=== PATIENT | male | born 1980 | race Caucasian/White ===

== ENCOUNTER 2018-04-05 17:07 | Inpatient (IN) | payer BC, OTHER ==
[~2018-04-05] VITALS: Ht 180.3 cm; Wt 59.0 kg
[2018-04-05 19:45] VITALS: BP 97/59
--- NOTE | 2018-04-05 19:45 | NUR ---
Intake Assessment Pt is a 38 y/o male seen at intake, A&Ox4 and presents with anxiety, disheveled hair and clothes. Pt is ambulatory with a steady gait. Vital signs: T 98.5, BP 97/59, HR 72, RR 16, SaO2 94%, PA 0/10. Pt claims no known allergies (NKA), reports no seizures. Pt reports being sober for 2.5 months until 3 months ago and has been using Oxycodone, Xanax, Adderall and Marijuana. Pt denies PMH of depression or anxiety, or any othe phychiatric DX. Pt also denies any PMH. Pt brought Melatonin 5mg tablets as sole home medication.
[2018-04-05 20:00] VITALS: BP 114/69
[2018-04-05] MEDS ORDERED: LORAZEPAM 2 MG/1 ML VIAL IM PRN (20:30)
[2018-04-05] MEDS ORDERED: LORAZEPAM 1 MG TABLET PO PRN (20:30)
[2018-04-05] MEDS ORDERED: MIRALAX 17 GM POWD.PACK PO PRN (20:30)
[2018-04-05] MEDS ORDERED: ONDANSETRON 4 MG/2 ML VIAL IM PRN (20:30)
[2018-04-05] MEDS ORDERED: ACETAMINOPHEN 325 MG TABLET PO PRN (20:30)
[2018-04-05] MEDS ORDERED: MAGNESIUM HYDROXIDE 30 ML LIQUID UDC PO PRN (20:30)
[2018-04-05] MEDS ORDERED: BUPRENORPHINE HCL 2 MG TAB.SUBL SL PRN (20:30)
[2018-04-05] MEDS ORDERED: NICOTINE 21 MG/24HR PATCH TD PRN (20:30)
[2018-04-05] MEDS ORDERED: MAG HYDROX/AL HYDROX/SIMETH 30 ML LIQUID UDC PO PRN (20:30)
[2018-04-05] MEDS ORDERED: LOPERAMIDE HCL 2 MG CAPSULE PO PRN ×2 (20:30)
--- NOTE | 2018-04-05 20:45 | NUR ---
Admission Note Pt arrived on the unit at 2019 on 04/05/18 for Opiate, Benzodiazapine, withdrawal. Skin and body check completed, skin intact and no contraband found. Pt is 5'11" and 130 lbs, reporting a 30 lb weight loss in last 2 months r/t drug use. Initial COWS is 3, CIWA 4. VS's T 98.3, BP 114/69, HR 67, RR 18, SaO2 99%, PA 0/10. Pt is a full code, regular diet with NKA's on universal and fall and seizure precautions. Pt denies any seizure hx, no falls in past year. Pt denies any PMH of anxiety, depression, does report some sleeping difficulties. Pt denies any SI/HI, hospitalizations in past 30 days or ever being in correction/senior care. 1 surgery noted on lymph node on neck, benign. Pt smokes approximately 20 cigarettes a day, expresses interest in smoking cessation. Flu vaccine out of season, willing to accept PNA vaccine if covered by insurance, and HIV testing. Pt brought Melatonin tablets, 5mg, as sole home med. Substance Use History: 1. Oxycodone IH 300mg/day for last 2 months at current rate, last used 04/05/18 at c. 1700. 2 . Xanax PO 1 bar 2-3 times per week for last 2 weeks at current rate, last used 04/05/18 at c. 1700. 3. Adderall PO used last November 2017, Pt unable to expand on usage other than very occasional. 4. Marijuana IH .5-1g/day used at current rate for last 3 weeks at current rate, last used 04/05/18 at c. 1700. Pt reports symptoms when not using as "Hell! Vomiting, nausea, diarrhea, irritability, lack of sleep, restless legs, anxious, scared". Motivation for seeking treatment today expressed by pt as "I'm broken. I need help. I don't want to detox by myself, I want to do it the right way". Pt reports achieving 2.5 months of sobriety, ending 3 months ago, longest period of sobriety was 2.5 years from 06/2013 to 03/2016. One treatment [facility]: [facility] for [facility] in 2012. Pt blames current relapse/usage on no meetings, no sponsor, breakup with girlfriend, and new job as Corporate Executive for [employer].Pt reports family hx of substance abuse in paternal grandfather, noted for alcoholism, and brother currently residing with, who is also an opiate addict currently in detox also. Pt's motivation for a sober life exhibited by "I want to get back to being sober because my life was better when I was sober". Pt is A&O x 4, speech is coherent, pt is ambulatory with steady gait, PERRLA. Respirations are even and non labored, lung sounds clear in all quadrants. Denies chest pain or SOB. Abdomen soft and non tender, bowel sounds active in all 4 quadrants. Last BM 04/04/18, usual pattern daily but pt reports now about every 3 days r/t opiate use/constipation. U/A and blood collected. Pt oriented to room and educated pt about smoking and unit rules, how to use call light, pt verbalized understanding. Safetly measure in place, side rails up x 2 with pads, bed in lowest position. Call light within reach. Admitting orders have been placed.
[2018-04-05 21:05] LABS: BASOPHILS # (AUTO) 0.1 K/uL (0.0-8.0); BASOPHILS % (AUTO) 0.4 % (0.0-2.0); EOSINOPHILS # (AUTO) 0.3 K/uL (0.0-0.7); HEMATOCRIT 39.9 % (36.7-47.1); HEMOGLOBIN 13.5 g/dL (12.5-16.3); LYMPHOCYTES # (AUTO) 2.9 K/uL (20.0-40.0); LYMPHOCYTES % (AUTO) 23.1 % (20.5-51.5); MEAN CORPUSCULAR HEMOGLOBIN 29.8 uug (23.8-33.4); MEAN CORPUSCULAR HGB CONC 34 g/dL (32.5-36.3); MEAN CORPUSCULAR VOLUME 87.9 fL (73.0-96.2); MONOCYTES % (AUTO) 8.2 % (0.0-11.0); NEUTROPHILS # (AUTO) 8.3 K/uL (1.8-8.9); NEUTROPHILS % (AUTO) 66.3 % (38.5-71.5); PLATELET COUNT (AUTO) 202 K/uL (152-348); RED BLOOD CELL COUNT(AUTO) 4.54 MIL/uL (4.06-5.63); WHITE BLOOD COUNT (AUTO) 12.6 K/uL (3.6-10.2)
[2018-04-05 21:10] LABS: *AMPHETAMINE, URINE NEGATIVE (NEGATIVE); *BARBITURATE, URINE NEGATIVE (NEGATIVE); *CANNABINOID, URINE POSITIVE (NEGATIVE); *COCCAINE, URINE NEGATIVE (NEGATIVE); *OPIATE, URINE POSITIVE (NEGATIVE); *PHENCYCLIDINE SCREEN,URINE NEGATIVE (NEGATIVE)
[2018-04-05 21:25] LABS: ALANINE AMINOTRANSFERASE 30 U/L (16-63); ALKALINE PHOSPHATASE 48 U/L (50-136); ASPARTATE AMINOTRANSFERASE 13 U/L (15-37); BILIRUBIN,TOTAL 0.6 mg/dL (0.2-1.0); CARBON DIOXIDE 31 mmol/L (21-32); CHLORIDE 103 mmol/L (98-107); CREATININE 1.2 mg/dL (0.6-1.3); GLUCOSE 87 mg/dL (74-106); MAGNESIUM 2.2 mg/dL (1.8-2.4); POTASSIUM 3.9 mmol/L (3.5-5.1); UREA NITROGEN, BLOOD 15 mg/dL (7-18)
[2018-04-05 21:32] LABS: ETHANOL < 3 MG/DL (0-0); THYROID STIMULATING HORMONE 0.327 mIU/mL (0.358-3.740)
[2018-04-05] MEDS ORDERED: MELA5TAB PO (23:36)
--- NOTE | 2018-04-06 | NUR ---
VS's COWS/CIWA Deferred Midnight VS's COWS/CIWA deferred r/t pt sleeping/refused. RR 14, even and nonlabored. Will continue to monitor pt, promptly attending to all needs.
[2018-04-06 04:00] VITALS: BP 100/65
--- NOTE | 2018-04-06 06:35 | NUR ---
End of Shift Pt is a 38 y/o male admitted 04/05/18 for medically managed withdrawal/detox from Opiates (Oxycodone), and Xanax. Pt made a full code, with NKA and regular diet. Pt presents after a 3 month relapse, with a 30lb weight loss in last 60 days, at 130lbs, 5'11". Starting 5 day Subutex taper 04/06, PRN Ativan available. Last COWS was 4 at 0400. There were no PRN's for shift .Pt continues to exhibit signs of anxiety, worry, depression over pt's impending sense of doom. Pt slept for 7 hours, with 500 intake, 1 voids and 0 BM's. Will continue to monitor pt for shift until morning endorsement, promptly attending to all pt needs.
[2018-04-06 08:00] VITALS: BP 100/65
--- NOTE | 2018-04-06 08:05 | NUR ---
START OF SHIFT: RECEIVED PT A/O X 4. HIS PUPILS ARE MODERATELY DILATED. HE PRESENTS WITH GUARDED AFFECT AND ANXIOUS MOOD.HE STATES HE DOES NOT WANT THE PPD AND IS NOT READY FOR THE SUBUTEX YET. COWS 10. HE STATES HE DOES NOT FEEL SICK ENOUGH YET BUT WILL LET ME KNOW WHEN HE'S READY TO START SUBUTEX TAPER. EDUCATED PT ABOUT SUBUTEX . PT EXPRESSED VERBAL UNDERSTANDING OF EDUCATION. WILL CONTINUE TO MONITOR AND MANAGE S/S OF W/D.
[2018-04-06] MEDS: BUPRENORPHINE HCL 2 MG TAB.SUBL SL SCH ×3 (09:00→20:34)
[2018-04-06] MEDS ORDERED: TUBERCULIN,PURIF.PROT.DERIV. 5 TU/0.1 ML TEST ID ONE (09:00)
[2018-04-06 12:00] VITALS: BP 107/69
--- NOTE | 2018-04-06 12:30 | NUR ---
COWS DEFERRED. PT LAYING IN BED WITH EYES CLOSED. RESPIRATIONS EVEN AND UNLABORED. BED LOCKED AND LOW. CALL PURCELL IN REACH.
--- NOTE | 2018-04-06 13:30 | NUR ---
PT REPORTS BODY ACHES,CHILLS,STOMACH CRAMPS,AND ANXIETY. COWS 15. SUBUTEX 4MG SL PRN GIVEN TO MANAGE S/S OF W/D. WILL MONITOR EFFECTIVENESS.
--- NOTE | 2018-04-06 14:00 | NUR ---
PRN SUBUTEX MILDLY EFFECTIVE. COWS NOW 8. WILL CONTINUE TO MONITOR AND MANAGE S/S OF W/D.
[2018-04-06 16:00] VITALS: BP 110/79
--- NOTE | 2018-04-06 18:58 | NUR ---
END OF SHIFT: PT STARTED SUBUTEX TAPER TODAY. HE CONTINUES TO PRESENT WITH GUARDED AFFECT AND ANXIOUS MOOD. LAST COWS 11. HE REPORTS BODY ACHES,SEATS,CHILLS AND ANXIETY AND STATES THE DETOX MEDS ARE MILDLY EFFECTIVE. HE HAS ISOLATED IN HIS ROOM MOST OF SHIFT WATCHING TV AND RESTING ON AND OFF. ENCOURAGED HIM TO INCREASE HIS FLUID INTAKE. OFFERED SUPPORT. WILL PASS SHIFT REPORT TO ONCOMING NIGHT NURSE.
--- NOTE | 2018-04-06 19:30 | NUR ---
START OF SHIFT Pt is a 38 y/o male admitted on 04/05/18 for opiate and benzo withdrawal. Pt is on a 5 day Subutex taper that started today with PRN Ativan available, tolerating well. Last COWS 11 and PRN Subutex 4 mg administered during day shift. Upon assessment pt presents with severe anxiety, restlessness, agitation, sweats, chills, nausea, body aches, headache, stomach cramps, unkempt room, tremors, difficulty falling and staying asleep, flat affect, depressed affect, disheveled appearance. Medications due. Safety measures in place. Call light within reach. Will continue to monitor.
[2018-04-06] MEDS: DICYCLOMINE HCL 20 MG TABLET PO PRN (19:37)
[2018-04-06] MEDS: METHOCARBAMOL 750 MG TABLET PO PRN (19:38)
[2018-04-06] MEDS: LORAZEPAM 1 MG TABLET PO PRN ×2 (19:38→22:05)
[2018-04-06] MEDS: ONDANSETRON ODT 4 MG TAB.RAPDIS SL PRN (19:38)
[2018-04-06] MEDS: IBUPROFEN 600 MG TABLET PO PRN (19:38)
--- NOTE | 2018-04-06 19:38 | NUR ---
PRN ATIVAN 2 MG, BENTYL, ZOFRAN ODT, MOTRIN, ROBAXIN ADMINISTRATION CIWA 15. Pt presents with anxiety, restlessness, inability to sit still, racing thoughts, stomach cramps, sweats, chills, body aches, nausea without vomiting, tremors and headache. Safety measures in place. Call light within reach. Will continue to monitor.
[2018-04-06 20:00] VITALS: BP 134/86
--- NOTE | 2018-04-06 20:08 | NUR ---
ROSSI MCLEAN ODT REASSESSMENT Pt reports nausea has ceased, no episodes of vomiting. Safety measures in place. Call light within reach. Will continue to monitor.
--- NOTE | 2018-04-06 20:38 | NUR ---
PRN ATIVAN, BENTYL, MOTRIN AND ROBAXIN REASSESSMENT CIWA 13, pt has improvement in nausea and stomach cramps. Pt reports his headache improved "slightly." Pt states his body aches are still rated as 8/10 and has persistent anxiety, restlessness and tremors. Safety measures in place. Call light within reach. Will continue to monitor.
[2018-04-06] MEDS: HYDROXYZINE PAMOATE 25 MG CAPSULE PO PRN (20:50)
[2018-04-06] MEDS: CLONIDINE HCL 0.1 MG TABLET PO PRN (20:50)
--- NOTE | 2018-04-06 20:50 | NUR ---
PRN CLONIDINE AND VISTARIL ADMINISTRATION Pt presents with severe anxiety, agitation, chills and sweats. Safety measures in place. Call light within reach. Will continue to monitor.
--- NOTE | 2018-04-06 21:50 | NUR ---
PRN CLONIDINE AND VISTARIL REASSESSMENT Pt reports improvement in chills and sweats, but symptoms are still present. Pt reports his anxiety and restlessness are "the same still." Pt presents with inability to sit still. Safety measures in place. Call light within reach. Will continue to monitor.
--- NOTE | 2018-04-06 22:05 | NUR ---
PRN ATIVAN 2 MG ADMINISTRATION CIWA 12. Pt presents with anxiety, restlessness, inability to sit still, tremors, sweats. Safety measures in place. Call light within reach. Will continue to monitor.
--- NOTE | 2018-04-06 23:05 | NUR ---
PRN ATIVAN 2 MG REASSESSMENT CIWA 10. Pt has mild improvement in anxiety, restlessness, tremors. Safety measures in place. Call light within reach. Will continue to monitor.
[2018-04-07] VITALS: BP 103/62
--- NOTE | 2018-04-07 | NUR ---
COWS/CIWA DEFERRED Pt laying in bed with eyes closed, COWS/CIWA deferred, to be assessed when pt is awake per orders. Respirations even and unlabored. Safety measures in place. Call light within reach. Will continue to monitor.
--- NOTE | 2018-04-07 02:10 | NUR ---
PRN ATIVAN 2 MG, BENADRYL AND MOTRIN ADMINISTRATION CIWA 12. Pt presents with anxiety, restlessness, sweats, chills, headache. Pt requests Benadryl for sleep aid. Safety measures in place. Call light within reach. Will continue to monitor.
[2018-04-07] MEDS: LORAZEPAM 1 MG TABLET PO PRN (02:21)
[2018-04-07] MEDS: IBUPROFEN 600 MG TABLET PO PRN ×3 (02:21→15:45)
[2018-04-07] MEDS: diphenhydrAMINE 50 MG CAPSULE PO PRN ×2 (02:21→20:36)
--- NOTE | 2018-04-07 03:21 | NUR ---
PRN ATIVAN, BENADRYL AND MOTRIN REASSESSMENT Pt laying in bed with eyes closed, medications noted effective. Respirations even and unlabored. Safety measures in place. Call light within reach. Will continue to monitor.
[2018-04-07 04:00] VITALS: BP 111/69
--- NOTE | 2018-04-07 07:11 | NUR ---
END OF SHIFT Pt is a 38 y/o male admitted on 04/05/18 for opiate and benzo withdrawal. Pt is on a 5 day Subutex taper that started on 04/06/18 with PRN Ativan available, tolerating well. Pt presented with severe anxiety, restlessness, agitation, sweats, chills, nausea, body aches, headache, stomach cramps, unkempt room, tremors, difficulty falling and staying asleep, flat affect, depressed affect, disheveled appearance. Scheduled medications and PRN Ativan 2 mg x 2, Bentyl, Zofran, Motrin x 2, Robaxin, Clonidine, Vistaril, Ativan 1 mg, and Benadryl administered, effective in S/S of withdrawal AEB COWS 17 and CIWA 15 lowered to COWS 8 and CIWA 12 during shift. Pt slept 5 hours. Intake 3000 ml, void x 2, stool x 0. Safety measures in place. Call light within reach. Pts needs have been met. Endorsed to day shift nurse.
--- NOTE | 2018-04-07 08:02 | NUR ---
START OF SHIFT PT IS A 38 Y/O M ADMITTED ON 04/05/18 FOR BENZO AND OPIATE WITHDRAWAL. PT IS ON A 5 DAY SUBUTEX TAPER THAT STARTED ON 04/06/18 WITH PRN ATIVAN. UPON ASSESSMENT, PT HAS A DISHEVELED APPEARANCE, PT HAS A FLAT AFFECT, DEPRESSED MOOD. PT PRESENTS EXTREME ANXIETY, AGITATION, SLEEPLESSNESS, RESTLESSNESS, DIAPHORESIS, CHILLS, INTERMITTENT COLD/HOT FLASHES, NAUSEA, STOMACH CRAMPS, GENERALIZED BODY ACHES, DIFFICULTY THINKING AND CONCENTRATING, AND TREMORS ARE NOTED. LAST COWS 8 AND CIWA 12, SLEPT 5 HRS PER GRAVURE PRESS SET UP OPERATOR NURSE. EDUCATED PT WITH TODAY'S PLAN OF CARE AND MED REGIMEN. SIDE RAILS UPX2, BED IN LOW POSITION. CALL LIGHT IS WITHIN REACH. WILL MONITOR AND PROVIDE SUPPORT.
[2018-04-07 08:03] VITALS: BP 98/64
[2018-04-07] MEDS ORDERED: BUPRENORPHINE HCL 2 MG TAB.SUBL SL SCH (09:00)
[2018-04-07] MEDS: METHOCARBAMOL 750 MG TABLET PO PRN ×2 (09:43→20:36)
[2018-04-07] MEDS: DICYCLOMINE HCL 20 MG TABLET PO PRN ×2 (09:43→15:45)
--- NOTE | 2018-04-07 09:43 | NUR ---
PRN ROBAXIN, BENTYL, CLONIDINE, AND IBUPROFEN GIVEN FOR GENERALIZED BODY ACHES, HEADACHE PAIN 7/10, CHILLS, DIAPHORESIS, HOT/COLD FLASHES, AND STOMACH CRAMPS. SAFETY MEASURES IN PLACE. WILL MONITOR AND REASSESS.
[2018-04-07] MEDS: CLONIDINE HCL 0.1 MG TABLET PO PRN ×2 (09:44→15:45)
--- NOTE | 2018-04-07 10:43 | NUR ---
REASSESSMENT PT IS LAYING IN BED WITH EYES CLOSED, SLEEPING. RESPIRATIONS EVEN AND UNLABORED; RR 16. SAFETY MEASURES IN PLACE. WILL CONTINUE TO MONITOR.
[2018-04-07 12:35] VITALS: BP 102/61
--- NOTE | 2018-04-07 13:15 | NUR ---
BEHAVIORAL NOTE PT WAS BEING ARGUMENTATIVE AND TALKING RUDELY TO STAFF SINCE BEGINNING OF SHIFT. PT STATED HE DISLIKES THE FOOD; DIETARY CAME TO ENSURE PT GOT WHAT HE WANTED HOWEVER WHEN LUNCH TRAY CAME, PT STATED, "THIS IS SO DISGUSTING, I AM NOT EVEN GOING TO OPEN IT." ALSO PT WAS NOT HAPPY WITH RULES. WHEN EXPLAINING RULES, HE WAS HIGHLY ARGUMENTATIVE AND RUDE, DID NOT CARE TO LISTEN TO THE RATIONALE, HE WOULD RUDELY CUT OFF STAFF WHEN TALKING. PT WANTED TO RUN LAPS ON THE STREETS OUTSIDE THE HOSPITAL. EXPLAINED TO PT DUE TO SAFETY AND BEING ON MEDICATION IT WOULD NOT BE SAFE. PT KEPT ARGUING AND TALKING RUDELY TO STAFF.
[2018-04-07] MEDS: HYDROXYZINE PAMOATE 25 MG CAPSULE PO PRN (14:20)
[2018-04-07] MEDS: BUPRENORPHINE HCL 2 MG TAB.SUBL SL SCH ×2 (14:26→20:36)
--- NOTE | 2018-04-07 15:45 | NUR ---
PRN VISTARIL 25 MG PO PRN, IBUPROFEN 600 MG PO PRN, BENTYL 20 MG PO PRN, AND CLONIDINE 0.1 MG PO PRN GIVEN FOR EXTREME ANXIETY, PT HAS FACIAL FLUSHING, TREMORS, DIAPHORESIS, CHILLS, GENERALIZED BODY ACHES 10/10 PAIN. WILL MONITOR AND REASSESS.
[2018-04-07 16:00] VITALS: BP 103/73
--- NOTE | 2018-04-07 16:45 | NUR ---
REASSESSMENT PT IS IN ROOM WITH LIGHTS OFF, TV ON AND APPEARS TO BE SLEEPING AT THIS TIME. RESPIRATIONS EVEN AND UNLABORED. SAFETY MEASURES IN PLACE.
--- NOTE | 2018-04-07 19:25 | NUR ---
END OF SHIFT LAST COWS 13 AND CIWA 16 @1600. PT HAS BEEN ISOLATIVE IN ROOM MOST OF THE DAY. PT HAS NOT ATTENDED GROUPS OR ACTIVITIES. PT CONTINUES ON A 5 DAY SUBUTEX TAPER. PT CONTINUES TO C/O ANXIETY AND PRESENTS AGITATION, IRRITATION, HIGHLY LABILE. PT HAS BEEN APATHETIC, HIGHLY IRRITABLE AND BEEN SPEAKING TO STAFF IN AN BLUNTED AND ANGRY MANNER. ENCOURAGED PT TO ATTEND GROUPS TO PROMOTE COPING SKILLS. ENCOURAGED PT TO INCREASE CONSUMPTION OF FOOD. SAFETY MEASURES IN PLACE. WILL GIVE ENDORSEMENT TO EXTRAS CASTING DIRECTOR.
[2018-04-07 20:00] VITALS: BP 116/68
--- NOTE | 2018-04-07 20:00 | NUR ---
Start of Shift Nurse Received a 38 y/o male px, admitted for medically supervised withdrawals from oxycodone, Xanax and Adderall. Px was placed on 5 day Subutex taper started on 04/06/2018. Px is tolerating it. Last reported COWS 13 and CIWA 16 by AM shift nurse. During the rounds at 1999, px appears disheveled, unshaven, and anxious. Px stated "I have back pain of 14 out of 10 and my anxiety is also 14 out of 10! I have hot/cold flushes." Bilateral hand tremors noted. Bed on lowest position, side rails up 2x and call light within reach. We'll continue to monitor.
--- NOTE | 2018-04-07 20:36 | NUR ---
PRN medications At 2035, px received Benadryl 50 mg, 1 cap PO for insomnia, Robaxin 750 mg, 1 tab PO and Tylenol 325 mg, 2 tabs PO for back pain. To reassess after an hour. We'll continue to monitor.
--- NOTE | 2018-04-07 21:36 | NUR ---
Reassessment of Pain Px stated "I still have pain, but it's better, it's 05/19." We'll continue to monitor.
[2018-04-07] MEDS ORDERED: LORAZEPAM 1 MG TABLET PO PRN ×2 (22:00)
[2018-04-08] VITALS: BP 112/68
--- NOTE | 2018-04-08 | NUR ---
COWS and CIWA deferred COWS and CIWA deferred due to the px is asleep, to assess if the px is awake per doctor's order. We'll continue to monitor.
[2018-04-08] MEDS: HYDROXYZINE PAMOATE 25 MG CAPSULE PO PRN (02:09)
[2018-04-08] MEDS: ONDANSETRON ODT 4 MG TAB.RAPDIS SL PRN (02:09)
[2018-04-08] MEDS: IBUPROFEN 600 MG TABLET PO PRN ×3 (02:09→17:44)
[2018-04-08] MEDS: DICYCLOMINE HCL 20 MG TABLET PO PRN ×3 (02:09→17:44)
--- NOTE | 2018-04-08 02:09 | NUR ---
PRN medications Px received Zofran 4 mg/tab, 1 tab SL for nausea, Ativan 1 mg/tab, 1 tab PO for anxiety, Bentyl 20 mg/tab, 1 tab PO for stomach cramps, Motrin 600 mg/tab, 1 tab PO for back pains of 7/10, and Vistaril 25 mg/cap, 1 cap PO for anxiety. We'll continue to monitor.
--- NOTE | 2018-04-08 02:40 | NUR ---
Reassessment of Nausea Px stated "My nausea improved."
[2018-04-08 03:10] LABS: HEPATITIS B SURFACE AG Negative (Negative)
--- NOTE | 2018-04-08 03:10 | NUR ---
Reassessments Px stated "My stomach cramps improved, my back pain is still there but it's better, I am still anxious but I feel better now, thank you." We'll continue to monitor.
[2018-04-08 04:00] VITALS: BP_SYST 118; BP_SYST 121; BP_DIAS 72; BP_DIAS 76
--- NOTE | 2018-04-08 07:10 | NUR ---
End of Shift Nurse During the shift at 2035, px received Benadryl 50 mg PO for insomnia and Robaxin 750 mg PO and Tylenol 650 mg PO for back pain. They were effective. At 208, px received Zofran 4 mg SL for nausea, it was effective. Ativan 1 mg given PO as PRN and Vistaril 25 mg PO for anxiety. Bentyl 20 mg was given PO for stomach cramps. It was effective. Motrin 600 mg was also given PO as PRN for back pain of 7/10. It was effective. Px's oral intake is 750 ml, voided 2x, with No BM. Px slept for total of 8 hours. Last COWS 10 and CIWA 10. At 0630, px is asleep on bed in right side lying position. Bed on lowest position, side rails up 2x and call light within reach. We'll continue to monitor. Px endorsed to AM shift nurse.
--- NOTE | 2018-04-08 07:45 | NUR ---
START OF SHIFT PT IS A 38 Y/O M ADMITTED ON 04/05/18 FOR BENZO AND OPIATE WITHDRAWAL. PT IS ON A 5 DAY SUBUTEX TAPER THAT STARTED ON 04/06/18 WITH PRN ATIVAN. PT HAS A DISHEVELED APPEARANCE, PT HAS A FLAT AFFECT, DEPRESSED MOOD. PT PRESENTS EXTREME ANXIETY, FEELINGS OF PANIC, AGITATION, RESTLESSNESS, DIAPHORESIS, CHILLS, INTERMITTENT COLD/HOT FLASHES, NAUSEA, STOMACH CRAMPS, GENERALIZED BODY ACHES, DIFFICULTY THINKING AND CONCENTRATING, BACK PAIN, INTERMITTENT SLEEP AND TREMORS ARE NOTED. LAST COWS 10 AND CIWA 10, SLEPT 8 HRS PER CHIEF OF PEDIATRIC UROLOGY NURSE. EDUCATED PT WITH TODAY'S PLAN OF CARE AND MED REGIMEN. ENCOURAGED PT TO ATTEND GROUPS TO LEARN HOW TO MAINTAIN SOBRIETY. SIDE RAILS UPX2, BED IN LOW POSITION. CALL LIGHT IS WITHIN REACH. WILL MONITOR AND PROVIDE SUPPORT.
[2018-04-08 08:00] VITALS: BP 96/60
[2018-04-08] MEDS: CLONIDINE HCL 0.1 MG TABLET PO PRN ×2 (09:44→17:44)
[2018-04-08] MEDS: LORAZEPAM 1 MG TABLET PO SCH ×4 (09:44→20:46)
[2018-04-08] MEDS: BUPRENORPHINE HCL 2 MG TAB.SUBL SL SCH ×3 (09:44→20:46)
--- NOTE | 2018-04-08 09:45 | NUR ---
PRN CLONIDINE 0.1 MG PO PRN, BENTYL 20 MG PO PRN, IBUPROFEN 600 MG PO PRN GIVEN FOR GENERALIZED BODY ACHES 10 PAIN, STOMACH CRAMPS, CHILLS, HOT FLASHES, DIAOPHORESIS. WILL MONITOR AND REASSESS.
--- NOTE | 2018-04-08 10:45 | NUR ---
REASSESSMENT PT IS LAYING IN BED, WITH EYES CLOSED, SLEEPING. RESPIRATIONS EVEN AND UNLABORED. SAFETY MEASURES IN PLACE. WILL CONTINUE TO MONITOR.
[2018-04-08 12:00] VITALS: BP 96/63
[2018-04-08 16:00] VITALS: BP 105/74
--- NOTE | 2018-04-08 16:45 | NUR ---
REASSESSMENT PT REPORTS MEDS WERE EFFECTIVE; PAIN IS 5/10, APPEARS CALM. SAFETY MEASURES IN PLACE. WILL CONTINUE TO MONITOR. Addendum: 04/08/18 at 1914 by CHRISTINA PARRA RN CORRECT TIME [id number]
[2018-04-08] MEDS: METHOCARBAMOL 750 MG TABLET PO PRN (17:44)
[2018-04-08] MEDS: HYDROXYZINE PAMOATE 25 MG CAPSULE PO SCH ×2 (17:44→23:20)
--- NOTE | 2018-04-08 17:45 | NUR ---
PRN PT HAS BEEN GIVEN CLONIDINE, BENTYL, IBUPROFEN, ROBAXIN PO PRNS; PT C/O GENERALIZED BODY ACHES 8/10, STOMACH CRAMPS, CHILLS, DIAPHORESIS, COLD/HOT FLASHES. WILL MONITOR AND REASSESS.
--- NOTE | 2018-04-08 18:37 | NUR ---
END OF SHIFT LAST COWS 12 AND CIWA 12 @1600. PT HAS BEEN GIVEN CLONIDINE, BENTYL, IBUPROFEN PO PRNS DURING SHIFT. PT HAS BEEN ISOLATIVE IN ROOM MOST OF THE DAY; REFUSED TO ATTEND GROUPS. PT HAS BEEN GIVEN CLONIDINE, BENTYL, IBUPROFEN PRNS DURING SHIFT AND WAS EFFECTIVE. ENCOURAGED PT TO ATTEND GROUPS TO INCREASE COPING SKILLS. ENCOURAGED PT TO INCREASE CONSUMPTION OF FOOD. SAFETY MEASURES IN PLACE. WILL GIVE ENDORSEMENT TO NATURAL RESOURCES PROFESSOR. Addendum: 04/08/18 at 1910 by CHRISTINA PARRA RN PT HAS BEEN GIVEN CLONIDINEX2, BENTYLX2, IBUPROFENX2, ROBAXIN PO PRNS DURING SHIFT.
--- NOTE | 2018-04-08 19:45 | NUR ---
Start of Shift Nurse Received a 38 y/o male px, admitted for medically supervised withdrawals from oxycodone, Xanax and Adderall. Px was placed on 5 day Subutex taper started on 04/06/2018 and 3 day Ativan taper, started 04/08/2018. Px is tolerating them. Last reported COWS 12 and CIWA 12 by AM shift nurse. During the rounds at 1945, px appears disheveled, unshaven, and anxious. Px stated "I have back pain of 10 out of 10 and my anxiety is also 10 out of 10! Why don't you have medication that can address my pain problem? Every time you ask me guys, I am always saying 10 or more than 10! I also have hot/cold flushes." Bilateral hand tremors noted. Bed on lowest position, side rails up 2x and call light within reach. We'll continue to monitor.
[2018-04-08 20:00] VITALS: BP 133/87
[2018-04-08] MEDS ORDERED: TRAZODONE 50 MG TABLET PO SCH (21:00)
[2018-04-08] MEDS: KETOROLAC TROMETHAMINE 30 MG INJ IM PRN (23:20)
--- NOTE | 2018-04-08 23:20 | NUR ---
PRN Toradol Px received Toradol 30 mg IM as PRN med injected on left deltoids for body pains of 10/. We'll continue to monitor.
--- NOTE | 2018-04-08 23:50 | NUR ---
Reassessment of body aches Px stated that his pains improved from 10/10 to 5/10. We'll continue to monitor.
[2018-04-09] VITALS: BP 128/81
[2018-04-09] MEDS: diphenhydrAMINE 50 MG CAPSULE PO PRN (02:44)
--- NOTE | 2018-04-09 02:44 | NUR ---
PRN Benadryl Px received Benadryl 50 mg/cap, 1 cap PO as PRN med for insomnia. We'll continue to monitor.
[2018-04-09 04:00] VITALS: BP 125/78
[2018-04-09] MEDS: HYDROXYZINE PAMOATE 25 MG CAPSULE PO SCH ×4 (05:30→22:42)
--- NOTE | 2018-04-09 05:30 | NUR ---
Px refused Vistaril Px refused Vistaril due to the px is too sleepy to take medication at this moment.
--- NOTE | 2018-04-09 07:10 | NUR ---
End of Shift Nurse During the shift at 2320, px received Toradol 30 mg Im for body pains of 10/10. They were effective. At 0244, px received Benadryl 50 mg PO for insomnia. Px's oral intake is 750 ml, voided 1x, with No BM. Px slept for total of 6 hours. Last COWS 8 and CIWA 9. At 0630, px is asleep on bed in right side lying position. Bed on lowest position, side rails up 2x and call light within reach. We'll continue to monitor. Px endorsed to AM shift nurse.
--- NOTE | 2018-04-09 07:30 | NUR ---
START OF SHIFT Pt 38 y/o male admitted for opiate withdrawal. Pt received awake walking around the hallway. Pt alert and oriented to name, place, and time. Perrla. Skin warm and moist to touch. Respirations even and unlabored. Bilateral hand tremors noted. Pt needed limit setting and redirection. Pt was asked to not walk into nursing station, but pt ignored staff and went through nursing station. Pt appears disheveled. Clothes and food wrappings scattered throughout the room. Encouraged to maintain hygiene. It was reported that pt slept for 6 hours last night. Pt is on a 5 day subutex taper and is on day 3. Pt is also on a 3 day ativan taper and is on day 2. Bed on lowest position with side rails x2 up for safety. Call light within reach. Addendum: 04/10/18 at 0746 by MARIANELA DE LA TORRE RN correction Pt is on a 5 day subutex and is on day 4.
[2018-04-09 08:03] VITALS: BP 112/75
--- NOTE | 2018-04-09 08:03 | NUR ---
NSG ENTRY Pt states has 12.5 pain generalized when asked to rate his pain level from 0-10 with 10 being the highest. Pt observed walking around the unit and smiling.
[2018-04-09] MEDS: LORAZEPAM 1 MG TABLET PO SCH ×3 (08:25→21:18)
[2018-04-09] MEDS: BUPRENORPHINE HCL 2 MG TAB.SUBL SL SCH ×2 (08:25→21:18)
[2018-04-09] MEDS: KETOROLAC TROMETHAMINE 30 MG INJ IM PRN (08:26)
--- NOTE | 2018-04-09 08:34 | NUR ---
PRN Pt states has pain and rates it "12.5" generalized. Toradol IM prn per MD order given and tolerated well.
--- NOTE | 2018-04-09 09:34 | NUR ---
PRN CEE Pt observed laying on bed watching television.
[2018-04-09 12:00] VITALS: BP 93/60
[2018-04-09] MEDS: METHOCARBAMOL 750 MG TABLET PO PRN (14:28)
--- NOTE | 2018-04-09 14:28 | NUR ---
PRN Pt states has generalized body aches 6/10. Robaxin po prn per MD order given and tolerated well.
--- NOTE | 2018-04-09 15:20 | NUR ---
ROSSI MIKE Pt observed sitting on couch watching television.
[2018-04-09 16:00] VITALS: BP 129/85
--- NOTE | 2018-04-09 17:15 | NUR ---
PRN Pt states has nicotine craving . Nicotine patch prn per MD order applied and tolerated well.
--- NOTE | 2018-04-09 19:07 | NUR ---
END OF SHIFT Pt 38 y/o male admitted for opiate withdrawal. Pt alert and oriented to name, place, and time. Perrla. Skin warm and moist to touch. Respirations even and unlabored. Bilateral hand tremors noted. Pt appears disheved. Clothes scattered throughout the room. Encouraged to maintain hygiene. Pt observed mostly isolative to room throughout the day. Pt attended group activity in the afternoon. Pt was seen by MD today. Pt medication compliant and tolerated well. No ASE noted. Pt is on a 5 day subutex taper and is on day 4. Pt is also on a 3 day ativan taper and is on day 2. cows=9@0800, 9@1200,and 9@1600. ciwa=9@0800, 9@1200, and 9@1600. Bed on lowest position with sdie rails x2 up for safety. Call light within reach.
--- NOTE | 2018-04-09 19:14 | NUR ---
Start of shift note Received report from day shift nurse. Pt is a 38 yo male, A+Ox4, presenting to [facility] for Benzo/Opiate/Amphetamine withdrawal. Pt noted with agitation, anxiety, and restlessness. Pt has HX of neck SX which will be monitored, during shift. Pt is on 5 day Subutex and 3 day Ativan tapers, tolerated well. Respirations even and unlabored. Will continue to monitor.
[2018-04-09 20:20] VITALS: BP 119/71
[2018-04-09] MEDS: TRAZODONE 50 MG TABLET PO SCH (22:42)
[2018-04-10 00:20] VITALS: BP 124/78
[2018-04-10 04:25] VITALS: BP 122/81
[2018-04-10] MEDS: HYDROXYZINE PAMOATE 25 MG CAPSULE PO SCH ×4 (05:30→22:35)
--- NOTE | 2018-04-10 06:59 | NUR ---
End of shift note Pt was continuously noted with agitation, anxiety, and restlessness. Pt remained in room for majority of shift except to get food from kitchen and to go smoke on smoking patio. Pt is on 5 day Subutex and 36day Ativan tapers, tolerated well. Pt was not given any PRN medications during shift. Pt slept for a total of 8 HRS. Last COWS: 8 and Last CIWA: 8 @0400. Respirations even and unlabored. Will endorse to day shift nurse.
--- NOTE | 2018-04-10 07:30 | NUR ---
START OF SHIFT Pt 38 y/o male admitted for opiate withdrawal. Pt received with eyes closed resting, but easily arousable to name. Pt alert and oriented to name, place, and time. Perrla. Skin warm and moist to touch. Respirations even and unlabored. Bilateral hand tremors noted. Pt appears disheveled. Observed empty drink bottles scattered throughout the room. Encouraged to maintain hygiene. It was reported that pt slept for 8 hours last night. Pt is on a 5 day subutex taper and is on day 5. Pt is also on a 3 day ativan taper and is on day 3. Bed on lowest position with side rails x2 up for safety. Call light within reach.
[2018-04-10 08:00] VITALS: BP 109/67
[2018-04-10] MEDS: DICYCLOMINE HCL 20 MG TABLET PO PRN (08:31)
--- NOTE | 2018-04-10 08:37 | NUR ---
PRN Pt with c/o stomach cramps. Bentyl po prn per MD given and tolerated well.
[2018-04-10] MEDS ORDERED: LORAZEPAM 1 MG TABLET PO SCH (09:00)
[2018-04-10] MEDS ORDERED: BUPRENORPHINE HCL 2 MG TAB.SUBL SL SCH (09:00)
--- NOTE | 2018-04-10 09:37 | NUR ---
PRN CEE Pt denies any stomach cramps at this time.
[2018-04-10 12:00] VITALS: BP 102/76
[2018-04-10] MEDS: CLONIDINE HCL 0.1 MG TABLET PO PRN (12:18)
--- NOTE | 2018-04-10 12:20 | NUR ---
PRN Pt states feels anxious. Catapres po prn per MD order given and tolerated well.
--- NOTE | 2018-04-10 13:20 | NUR ---
ROSSI MIKE Pt observed laying in bed in room watching television.
[2018-04-10 16:00] VITALS: BP 112/69
--- NOTE | 2018-04-10 18:35 | NUR ---
END OF SHIFT Pt 38 y/o male admitted for opiate withdrawal. Pt alert and oriented to name, place, and time. Perrla. Skin warm and moist to touch. Respirations even and unlabored. Bilateral hand tremors noted. Pt appears disheveled. Food wrappings scattered throughout the room. Encouraged to maintain hygiene. Pt observed mostly isolative to room throughout the day. Pt did not attend group activity today. Pt was seen by MD today. Pt medication compliant and tolerated well. No ASE noted. Pt is on a 5 day subutex taper and is on day 5. Pt is also on a 3 day ativan taper and is on day 3. cows=7@0800, 7@1200,and 6@1600. ciwa=6@0800, 6@1200, and 5@1600. Bed on lowest position with side rails x2 up for safety. Call light within reach. Pt is scheduled to be discharged tomorrow.
[2018-04-10] MEDS ORDERED: HYDR-3895 PO (19:09)
[2018-04-10] MEDS ORDERED: IBUP-1955 PO (19:09)
[2018-04-10] MEDS ORDERED: NICO-672 TD (19:09)
[2018-04-10] MEDS ORDERED: METH-406 PO (19:09)
[2018-04-10] MEDS ORDERED: TRAZ-144 PO (19:09)
[2018-04-10] MEDS ORDERED: DICY20TA28 PO (19:09)
[2018-04-10] MEDS ORDERED: CLON0.1T14 PO (19:09)
--- NOTE | 2018-04-10 19:17 | NUR ---
Start of shift note Received report from day shift nurse. Pt is a 38 yo male, A+Ox4, presenting to [facility] for Benzo/Opiate/Amphetamine withdrawal. Pt noted with agitation, anxiety, and restlessness. Pt has completed 5 day Subutex and 3 day Ativan tapers, tolerated well, and is due for discharge tomorrow. Respirations even and unlabored. Will continue to monitor.
[2018-04-10 20:07] VITALS: BP 118/75
[2018-04-10] MEDS: TRAZODONE 50 MG TABLET PO SCH (22:35)
[2018-04-11 00:12] VITALS: BP 128/75
[2018-04-11 04:31] VITALS: BP 123/72
[2018-04-11] MEDS: HYDROXYZINE PAMOATE 25 MG CAPSULE PO SCH ×2 (05:30→12:14)
--- NOTE | 2018-04-11 07:00 | NUR ---
End of shift note Pt was continuously noted with agitation, anxiety, and restlessness. Pt remained in room for majority of shift except to get food from kitchen, and to go smoke on smoking patio. Pt has completed 5 day Subutex and 3 day Ativan tapers, tolerated well, and is due for discharge today. Pt was not given any PRN medications during shift. Pt slept for a total of 6 HRS. Last COWS: 5 and Last CIWA: 5 @0400. Respirations even and unlabored. Will endorse to day shift nurse.
--- NOTE | 2018-04-11 07:30 | NUR ---
START OF SHIFT Pt 38 y/o male admitted for opiate withdrawal. Pt received awake on bed watching television. Pt alert and oriented to name, place, and time. Perrla. Skin warm and dry to touch. Respirations even and unlabored. Clothes scattered throughout the room. Encouraged to maintain hygiene. It was reported that pt slept for 6 hours last night. Pt completed a 5 day subutex taper. Pt also completed a 3 day ativan taper. Pt is scheduled to be discharged today. Last cows=5 ciwa=5 reported at 0400. Bed on lowest position with side rails x2 up for safety. Call light within reach.
[2018-04-11 08:00] VITALS: BP 109/72
[2018-04-11] MEDS: CLONIDINE HCL 0.1 MG TABLET PO PRN ×2 (08:37→14:44)
[2018-04-11] MEDS: METHOCARBAMOL 750 MG TABLET PO PRN (08:37)
[2018-04-11] MEDS: IBUPROFEN 600 MG TABLET PO PRN (08:37)
[2018-04-11] MEDS: DICYCLOMINE HCL 20 MG TABLET PO PRN (08:39)
[2018-04-11 12:00] VITALS: BP 101/67
[2018-04-11 14:44] VITALS: BP 101/61
--- NOTE | 2018-04-11 15:10 | NUR ---
DISCHARGE Pt 38 y/o male admitted for opiate withdrawal. Pt alert and oriented to name, place, and time. Perrla. Skin warm and dry to touch. Respirations even and unlabored. No hand tremors noted. VS wnl. No belongings in cabinet and cassette noted. Pt home medications, prescriptions, and discharge papers packed in bag. Pt denies any SI/HI. Pt discharged to home via private transport. Pt excited about discharge. No distress noted.
== END 2018-04-11 15:10 | disposition home or self-care (01) | DRG 895 ==
LOC: SRC 18:41
PROVIDERS: ADMIT Internal Medicine; ATTEND Internal Medicine
PROC: HZ2ZZZZ Detoxification Services for Substance Abuse Treatment (ICD-10-PCS; principal; 2018-04-05)
PROC: HZ51ZZZ Individual Psychotherapy for Substance Abuse Treatment, Behavioral (ICD-10-PCS; 2018-04-07)
DX: F11.23 Opioid dependence with withdrawal (principal); D72.829 Elevated white blood cell count, unspecified; F13.230 Sedative, hypnotic or anxiolytic dependence with withdrawal, uncomplicated; F12.20 Cannabis dependence, uncomplicated; F17.210 Nicotine dependence, cigarettes, uncomplicated; Z81.1 Family history of alcohol abuse and dependence
CPT/HCPCS: 36415; 80307; 80346; 80349; 80361; 83735; 84443; 85025; 86592; 86705; 86803; 87340; 87806; G0480; J1885; Q0162; Q0163